=== PATIENT | female | born 1940 | race Caucasian/White ===

== ENCOUNTER → 2020-07-22 | Outpatient (CLI) | payer MEDICARE, OTHER | LOC: KOH-I 16:26 | DX: M54.9 Dorsalgia, unspecified (principal); M54.5 Low back pain; R07.81 Pleurodynia; M25.511 Pain in right shoulder; M25.551 Pain in right hip; M43.8X9 Other specified deforming dorsopathies, site unspecified; S22.31XA Fracture of one rib, right side, initial encounter for closed fracture | CPT/HCPCS: 71111; 72070; 72100; 73030; 73502 ==

== ENCOUNTER → 2020-07-24 | Outpatient (CLI) | payer MEDICARE, OTHER | LOC: KOH-I 09:56 → EMI 07-26 13:00 | DX: M51.34 Other intervertebral disc degeneration, thoracic region (principal); M48.54XA Collapsed vertebra, not elsewhere classified, thoracic region, initial encounter for fracture | CPT/HCPCS: 72146 ==

== ENCOUNTER → 2020-07-30 | Outpatient (CLI) | payer MEDICARE, OTHER | LOC: EXRD 12:50 | DX: Z78.0 Asymptomatic menopausal state (principal); M81.0 Age-related osteoporosis without current pathological fracture | CPT/HCPCS: 77080 ==

== ENCOUNTER 2021-12-12 17:33 | Emergency (ER) | payer MEDICARE, OTHER ==
[2021-12-12] MEDS ORDERED: HYDROCODON-ACE1 EAC4 PO (22:32)
== END 2021-12-13 02:34 | disposition home or self-care (01) ==
LOC: ER1 17:33
DX: S22.42XA Multiple fractures of ribs, left side, initial encounter for closed fracture (principal); Z88.6 Allergy status to analgesic agent; W01.0XXA Fall on same level from slipping, tripping and stumbling without subsequent striking against object, initial encounter; Y92.009 Unspecified place in unspecified non-institutional (private) residence as the place of occurrence of the external cause
CPT/HCPCS: 71111; 99283

== ENCOUNTER → 2021-12-18 | Outpatient (CLI) | payer MEDICARE, OTHER ==
[~2021-12-18] MED LIST: HYDROCODON-ACE1 EAC4 PO
== END ==
LOC: KOH-I 13:49
DX: M54.2 Cervicalgia (principal); M47.812 Spondylosis without myelopathy or radiculopathy, cervical region
CPT/HCPCS: 72040